=== PATIENT | female | born 2000 | race Caucasian/White ===

== ENCOUNTER 2025-07-29 22:50 | Emergency (ER) | payer OTHER ==
[~2025-07-29] VITALS: Ht 170.2 cm; Wt 58.0 kg
[2025-07-29 22:56] VITALS: TEMP 36.5; O2SAT 98
[2025-07-29] MEDS: KETOROLAC 15MG/ML VIAL IV ONE (23:30)
[2025-07-29 23:52] LABS: BASOPHILS % 0.7 % (0.0-2.0); EOSINOPHILS % 2.9 % (0.0-5.0); HEMATOCRIT. 35.0 % (36.0-48.0); HEMOGLOBIN. 11.7 g/dL (12.0-16.0); LYMPHOCYTES % 37.5 % (20.0-50.0); MEAN PLATELET VOLUME 7.9 fl (7.4-10.4); MONOCYTES % 7.9 % (2.0-8.0); NEUTROPHILS % 51.0 % (40.0-76.0); PLATELET 238 x1000/uL (130-400); RED BLOOD CELL COUNT 3.92 mill/uL (4.2-5.4); RED CELL DISTRIBUTION WIDTH 13.4 % (11.6-14.6)
[2025-07-30 00:06] LABS: CREATININE 0.8 mg/dL (0.6-1.0); UREA NITROGEN BLOOD 9 mg/dL (9-23)
[2025-07-30 00:07] LABS: HCG SCREEN NEGATIVE; TROPONIN I HIGH SENSITIVITY < 4 ng/L (3.0-34)
[2025-07-30] MEDS: ONDANSETRON HCL 4MG/2ML INJ IV ONE (00:40)
[2025-07-30] MEDS: FAMOTIDINE 20MG/2ML VIAL IV ONE (00:40)
[2025-07-30] MEDS: SODIUM CHLORIDE 0.9% 1,000 ML IV ONE (00:40)
[2025-07-30 04:16] VITALS: BP 122/81; PULSE 77; RESP 12; O2SAT 96
== END 2025-07-30 04:17 | disposition home or self-care (01) ==
LOC: ER 22:50
DX: S09.8XXA Other specified injuries of head, initial encounter (principal); R55 Syncope and collapse; W19.XXXA Unspecified fall, initial encounter; Y93.89 Activity, other specified; Y92.89 Other specified places as the place of occurrence of the external cause; Y99.8 Other external cause status
CPT/HCPCS: 80048; 84703; 83690; 85025; 84484; 36415; 70450; 99285; 96361; 96374; 96375; J7030; J1308; J2405; Z7610 ×2